=== PATIENT | male | born 1965 | race Caucasian/White ===

== ENCOUNTER 2021-01-29 18:30 | Emergency (ER) | payer OTHER ==
[2021-01-29] MEDS ORDERED: Albuterol Sulfate 2.5 mg/0.5 ml Neb ONE (18:51)
[2021-01-29 19:01] LABS: #Basophils 0.1 thou/uL (0.0-0.2); #Lymphocytes 1.3 thou/uL (1.20-3.40); #Monocytes 0.4 thou/uL (0.11-0.59); #Neutrophils 4.1 thou/uL (1.40-6.50); %Basophils 1.1 % (0.0-1.0); %Eosinophils 0.5 % (0.0-10.0); %Lymphocytes 21.5 % (21.0-51.0); %Monocytes 7.5 % (0.0-10.0); %Neutrophils 69.4 % (42.0-75.0); Hemoglobin 12.2 g/dL (14.0-18.0); Mean Corpuscular HGB CONC 32.3 g/dL (32.0-36.0); Mean Corpuscular Hemoglobin 32.4 pg (27.0-31.0); Mean Platelet Volume 6.3 fL (7.4-10.4); Platelet Count 136 thou/uL (130-400); RBC Distribution Width 11.8 % (11.5-14.5); Red Blood Cell (RBC) Count 3.75 mill/uL (4.70-6.10); White Blood Cell (WBC) Count 5.9 thou/uL (4.8-10.8)
[2021-01-29 19:19] LABS: ALT (SGPT) 44 U/L (8-55); AST (SGOT) 45 U/L (5-34); Albumin 4.2 g/dL (3.5-5.0); Alkaline Phosphatase 72 U/L (40-110); Anion Gap 16 mmol/L (10-20); BUN (Urea Nitrogen) 4 mg/dL (8.4-25.7); Bilirubin, Total 2.5 mg/dL (0.2-1.2); Calc. Creatinine Clearance 0 mL/min (70-130); Calcium 9.1 mg/dL (7.8-10.44); Carbon Dioxide 23 mmol/L (22-29); Chloride 87 mmol/L (98-107); Globulin 2.4 g/dL (2.4-3.5); Glucose 95 mg/dL (70-105); Magnesium 1.4 mg/dL (1.6-2.6); Potassium 3.7 mmol/L (3.5-5.1); Protein, Total 6.6 g/dL (6.0-8.3); Sodium 122 mmol/L (136-145)
[2021-01-29] MEDS ORDERED: Nitroglycerin 2% Ointment 1 INCH/1 GM Packet ONE (20:42)
[2021-01-29 21:17] LABS: SARS-CoV-2 NAA Rapid Test Not Detected (NotDetected)
[2021-01-29] MEDS ORDERED: Magnesium Oxide 400 MG TAB PO SCH (21:30)
== END 2021-01-29 22:28 | disposition short-term general hospital (02) ==
LOC: NAV ERS 18:30
DX: R06.02 Shortness of breath (principal); I16.0 Hypertensive urgency; E83.42 Hypomagnesemia; E87.1 Hypo-osmolality and hyponatremia; F17.210 Nicotine dependence, cigarettes, uncomplicated
CPT/HCPCS: 0240U; 36415; 71045; 80053; 83605; 83735; 83880; 84484; 85025; 85379; 93005; J7611